=== PATIENT | male | born 1980 | race Caucasian/White ===

== ENCOUNTER 2017-10-07 10:11 | Emergency (ER) | payer BC ==
[2017-10-07] MEDS ORDERED: predniSONE TAB* 20 MG PO ONE (10:49)
[2017-10-07] MEDS ORDERED: Ibuprofen TAB* 400 MG PO ONE (10:49)
[2017-10-07] MEDS ORDERED: Albuterol/Ipratropium NEB.SOL* Albuterol 2.5 MG/Ipratropium 0.5 MG 3 ML INH ONE (10:49)
--- NOTE | 2017-10-07 11:06 | RAD ---
INDICATION: Cough. Right-sided chest pain COMPARISON: None TECHNIQUE: PA and lateral dual-energy views were obtained. FINDINGS: Bones/Soft Tissues: There are no acute bony findings. Cardiomediastinal: The cardiomediastinal silhouette is normal. Lungs: There are no infiltrates. Pleura: There are no pleural effusions. Other: None IMPRESSION: NO ACTIVE DISEASE.
[2017-10-07 11:36] VITALS: BP 124/85
--- NOTE | 2017-10-07 17:31 | ED ---
Germania Larry Gabriel, scribed for J Carlos Parks MD on 10/07/17 at 1104 . Respiratory - HPI Summary HPI Summary: This patient is a 37 year old M presenting to [facility] with a chief complaint of a respiratory complaint that has been ongoing for weeks. The patient rates the pain 3/10 in severity. Patient reports mild SOB, nonproductive cough, and CP that is secondary to cough. Patient denies fever, n/v/d, and edema. Pt is a current everyday smoker (1/2 PPD) with no family cardiac history. - History of Current Complaint Chief Complaint: EDChestPainROMI Stated Complaint: CHEST PAIN Time Seen by Provider: 10/07/17 10:42 Hx Obtained From: Patient Onset/Duration: Still Present Timing: Constant Initial Severity: Mild Current Severity: Mild Pain Intensity: 3 Character: Cough (Nonproductive) Associated Signs and Symptoms: SOB, Chest Pain - Allergy/Home Medications Allergies/Adverse Reactions: Allergies Allergy/AdvReac Type Severity Reaction Status Date / Time No Known Allergies Allergy Verified 10/07/17 11:54 PMH/Surg Hx/FS Hx/Imm Hx Cardiovascular History: Denies: Hx Angina, Hx Cardiac Arrest, Hx Congenital Heart Disease, Hx Congestive Heart Failure, Hx Coronary Artery Disease, Hx Myocardial Infarction, Hx Pacemaker/ICD Neurological History: Denies: Hx Seizures Infectious Disease History: No Infectious Disease History: Denies: Traveled Outside the [place] in Last 30 Days - Family History Known Family History: Positive: Other - CVA grandmother - Social History Alcohol Use: Weekly Substance Use Type: Reports: None Smoking Status (MU): Heavy Every Day Tobacco Smoker Review of Systems Negative: Fever Positive: Chest Pain Positive: Shortness Of Breath, Cough Negative: Vomiting, Diarrhea, Nausea Negative: Edema All Other Systems Reviewed And Are Negative: Yes Physical Exam - Summary Physical Exam Summary: Appearance: Well appearing, no pain distress Skin: warm, dry, reflects adequate perfusion Head/face: normal Eyes: EOMI, CHUCHO ENT: normal Neck: supple, non-tender Respiratory: there are diffuse wheezes in bilateral bases, rales, and rhonchi present Cardiovascular: RRR, pulses symmetrical Abdomen: non-tender, soft Bowel Sounds: present Musculoskeletal: strength/ROM intact, TTP in the right anterior chest Neuro: normal, sensory motor intact, A&Ox3 Triage Information Reviewed: Yes Vital Signs On Initial Exam: Initial Vitals Temp Pulse Resp BP Pulse Ox 98.7 F 76 16 141/97 97 10/07/17 10:23 10/07/17 10:23 10/07/17 10:23 10/07/17 10:23 10/07/17 10:23 Vital Signs Reviewed: Yes Diagnostics - Vital Signs Vital Signs Temp Pulse Resp BP Pulse Ox 10/07/17 10:23 98.7 F 76 16 141/97 97 - Laboratory Lab Statement: Any lab studies that have been ordered have been reviewed, and results considered in the medical decision making process. - Radiology CXR Radiology Interpretation Completed By: Radiologist - No active disease. Dr Parks has reviewed this report - EKG 1018 Cardiac Rate: NL EKG Rhythm: Sinus Rhythm - at 73 BPM EKG Interpretation: nml axis, nml interval, j point elevation in v2/v3 no reciprocal depression Disposition - Course Course Of Treatment: History smoker with cough, congestion and a right-sided pain. No pneumonia on x-ray. No independent risk factors for DVT PE. Treated with breathing treatments which resolved his wheezing and improved his discomfort. Likely early COPD. Start steroids, albuterol and antibiotic outpatient. - Differential Dx - Cardiopulmonary Differential Diagnoses - Cardiopulmonary: CAD, Chest Wall Pain, Pericarditis, Pneumothorax, Pulmonary Edema, Pulmonary Embolism - Diagnoses Provider Diagnoses: COPD exacerbation, Tobacco abuse Discharge - Sign-Out/Discharge Documenting (check all that apply): Discharge/Admit/Transfer - Discharge Plan Condition: Good Disposition: HOME Prescriptions: Albuterol HFA INHALER* [Ventolin HFA Inhaler*] 2 puff INH Q4H PRN #1 mdi PRN Reason: Shortness Of Breath DOXYcycline CAP(*) [DOXYcycline 100MG CAP(*)] 100 mg PO BID #14 cap predniSONE TAB* [Deltasone TAB*] 50 mg PO DAILY #4 tab Patient Education Materials: COPD (Chronic Obstructive Pulmonary Disease) (ED) Forms: *Work Release Referrals: [facility] [Outside] Additional Instructions: Ibuprofen as needed for pain. Return with fevers, increased cough, worse chest pain or other concerns. Color provider referral line today to schedule appointment with her primary care physician. Back on your smoking. - Billing Disposition and Condition Condition: GOOD Disposition: HOME The documentation as recorded by the Germania gottlieb Gabriel accurately reflects the service I personally performed and the decisions made by me, J Carlos Parks MD.
== END 2017-10-07 11:42 | disposition home or self-care (01) ==
LOC: ED 10:11
DX: J44.1 Chronic obstructive pulmonary disease with (acute) exacerbation (principal); Z72.0 Tobacco use
CPT/HCPCS: 71046; 93005; 99282; A9270-GY; J7512